=== PATIENT | female | born 1940 | race Caucasian/White ===

== ENCOUNTER 2016-03-27 06:45 | Day surgery (SDC) | payer OTHER ==
[2016-03-24 10:48] VITALS: BMI 26.9
[2016-03-27] MEDS ORDERED: PROPOFOL 20 ML ONE ×2 (07:57)
[2016-03-27 08:58] VITALS: TEMP 97.7
[2016-03-27 10:08] VITALS: BP 118/72; PULSE 66
--- NOTE | 2016-03-28 11:53 | PATH ---
Surgical Pathology Report Patient Name: ELAYNE CARDOZO [facility]. Rec. #: [id number] /Age/Gender: 1940 (Age: 75) / F Account: [id number] Location: [facility]-ENDOSCOPY Taken: 03/27/2016 Received: 03/27/2016 Reported: 03/28/2016 Physicians: Channing Mccoy M.D. Specimen(s) Received A: BX 2ND PORTION DUODENUM & BULB B: BX ANTRUM C: POLYPS RIGHT COLON D: POLYP DESCENDING COLON Clinical History Anemia, history of diverticulosis, polyps Hiatal hernia, atrophic gastritis, duodenal AVM, diverticulosis, right colon polyps, descending colon polyp Final Diagnosis A. DUODENUM, SECOND PORTION AND BULB, BIOPSY: DUODENAL MUCOSA WITH NO PATHOLOGIC CHANGES. NO HISTOLOGIC EVIDENCE OF GLUTEN SENSITIVE ENTEROPATHY (CELIAC SPRUE) IDENTIFIED. B. STOMACH, ANTRUM, BIOPSY: MODERATE CHRONIC ACTIVE GASTRITIS. IMMUNOSTAIN FOR H. PYLORI IS POSITIVE (FEW TO MODERATE NUMBERS OF ORGANISMS). C. COLON, RIGHT, BIOPSY: MULTIPLE PORTIONS OF TUBULAR ADENOMA D. COLON, DESCENDING, BIOPSY: TUBULAR ADENOMA. Electronically Signed Yves De La Rosa M.D. Gross Description A. Received in formalin, labeled "biopsy duodenal bulb and second portion" are 3 gonzales, irregular portions of soft tissue ranging from 0.3-0.5 cm. in greatest dimension. The specimens are submitted in toto in one cassette. B. Received in formalin, labeled "biopsy antrum" are 4 gonzales, irregular portions of soft tissue ranging from 0.2-1.2 cm. in greatest dimension. The specimens are submitted in toto in one cassette. C. Received in formalin, labeled "polyps right colon" are 3 gonzales, irregular portions of soft tissue ranging from 0.1-0.2 cm. in greatest dimension. The specimens are submitted in toto in one cassette. D. Received in formalin, labeled "polyp descending colon" is a gonzales, irregular portion of soft tissue measuring 0.3 cm. in greatest dimension. The specimen is submitted in toto in one cassette. 03/27/201603/27/2016
== END 2016-03-27 10:08 | disposition home or self-care (01) ==
LOC: JASU-ENDO 06:45
PROVIDERS: ATTEND Internal Medicine Gastroenterology
PROC: 0DBM8ZX Excision of Descending Colon, Via Natural or Artificial Opening Endoscopic, Diagnostic (ICD-10-PCS; 2016-03-27)
PROC: 0DBK8ZX Excision of Ascending Colon, Via Natural or Artificial Opening Endoscopic, Diagnostic (ICD-10-PCS; principal; 2016-03-27 08:00)
DX: Z86.010 Personal history of colon polyps (principal); D64.9 Anemia, unspecified; D12.2 Benign neoplasm of ascending colon; D12.4 Benign neoplasm of descending colon; K57.30 Diverticulosis of large intestine without perforation or abscess without bleeding; K64.8 Other hemorrhoids
CPT/HCPCS: 88305-TC; 88342-TC

== ENCOUNTER 2019-03-31 06:56 | Day surgery (SDC) | payer OTHER ==
[2019-03-28 12:05] VITALS: BMI 26.6
[2019-03-31 07:34] VITALS: TEMP 97.3
[2019-03-31 09:11] VITALS: BP 134/58; PULSE 63
--- NOTE | 2019-04-01 15:20 | PATH ---
Surgical Pathology Report Patient Name: ELAYNE CARDOZO [facility]. Rec. #: [id number] /Age/Gender: 1940 (Age: 78) / F Account: [id number] Location: [facility]OS[facility] Taken: 03/31/2019 Received: 03/31/2019 Reported: 04/01/2019 Physicians: Channing Mccoy M.D. Specimen(s) Received A: SECOND PORTION DUODENUM AND DUODENAL BULB B: GASTRIC ULCER AND GASTRIC ANTRAL ULCER C: SCHATZKI RING D: POLYP Clinical History Dysphagia, colon adenoma surveillance Postoperative diagnosis: Gastric ulcer, hiatal hernia, Schatzki's ring, cecal polyp, diverticulosis Final Diagnosis A. DUODENUM, SECOND PORTION AND BULB, BIOPSY: DUODENAL MUCOSA WITH NO PATHOLOGIC CHANGES. NO HISTOLOGIC EVIDENCE OF GLUTEN SENSITIVE ENTEROPATHY (CELIAC SPRUE) IDENTIFIED. B. STOMACH, ANTRUM, BIOPSY: MILD TO MODERATE CHRONIC GASTRITIS WITH REACTIVE GASTROPATHY AND FOCAL INTESTINAL METAPLASIA. NO DYSPLASIA IDENTIFIED. IMMUNOSTAIN FOR H. PYLORI IS NEGATIVE. C. ESOPHAGUS, SCHATZKI'S RING, BIOPSY: SQUAMOUS AND GASTRIC MUCOSA WITH ACUTE AND CHRONIC INFLAMMATION AND PAPILLOMATOSIS SUGGESTIVE OF REFLUX ESOPHAGITIS. NO INTESTINAL METAPLASIA IDENTIFIED (NO ARIZMENDI'S IDENTIFIED). D. COLON, CECUM, BIOPSY: TUBULAR ADENOMA. Electronically Signed Yves De La Rosa M.D. Gross Description A. Received in formalin, labeled "biopsy second portion of duodenum and duodenal bulb" are 3 gonzales, irregular portions of soft tissue ranging from 0.4-0.6 cm. in greatest dimension. The specimens are submitted in toto in one cassette. B. Received in formalin, labeled "biopsy gastric ulcer and antral ulcer" are 5 gonzales, irregular portions of soft tissue ranging from 0.2-0.4 cm. in greatest dimension. The specimens are submitted in toto in one cassette. C. Received in formalin, labeled "biopsy Schatzki's ring" are 5 gonzales, irregular portions of soft tissue ranging from 0.1-0.4 cm. in greatest dimension. The specimens are submitted in toto in one cassette. D. Received in formalin, labeled "biopsy cecal polyp" is a gonzales, irregular portion of soft tissue measuring 0.3 cm. in greatest dimension. The specimen is submitted in toto in one cassette. DL/03/31/2019 saudi/03/31/2019
== END 2019-03-31 09:34 | disposition home or self-care (01) ==
LOC: JASU-ENDO 06:56
PROVIDERS: ATTEND Internal Medicine Gastroenterology
PROC: 0DB48ZX Excision of Esophagogastric Junction, Via Natural or Artificial Opening Endoscopic, Diagnostic (ICD-10-PCS; 2019-03-31)
PROC: 0DB68ZX Excision of Stomach, Via Natural or Artificial Opening Endoscopic, Diagnostic (ICD-10-PCS; 2019-03-31)
PROC: 0DBH8ZX Excision of Cecum, Via Natural or Artificial Opening Endoscopic, Diagnostic (ICD-10-PCS; principal; 2019-03-31 08:00)
DX: Z12.11 Encounter for screening for malignant neoplasm of colon (principal); K57.30 Diverticulosis of large intestine without perforation or abscess without bleeding; K64.4 Residual hemorrhoidal skin tags; D12.0 Benign neoplasm of cecum; K25.9 Gastric ulcer, unspecified as acute or chronic, without hemorrhage or perforation; K44.9 Diaphragmatic hernia without obstruction or gangrene; K22.2 Esophageal obstruction; K29.50 Unspecified chronic gastritis without bleeding; I10 Essential (primary) hypertension; E11.9 Type 2 diabetes mellitus without complications; Z79.84 Long term (current) use of oral hypoglycemic drugs; Z86.010 Personal history of colon polyps
CPT/HCPCS: 88305-TC; 88342-TC

== ENCOUNTER 2019-12-03 05:05 | Day surgery (SDC) | payer OTHER ==
[2019-12-02 09:50] VITALS: BMI 23.6
[~2019-12-03 05:05] MED LIST: ACETAMINOPHEN 325 MG TABLET (FP) PO PRN; EPINEPHrine/PF 1 MG/1 ML (1:1,000) AMPULE SQ ONE
--- OUTSIDE RECORDS SUMMARY | 2019-12-03 05:11 | XMS ---
:1940 [facility] Care Team Providers Name Role Phone [facility], [facility] Unavailable Unavailable Re-disclosure Warning The records that you are about to access may contain information from federally- assisted alcohol or drug abuse programs. If such information is present, then the following federally mandated warning applies: This information has been disclosed to you from records protected by federal confidentiality rules (42 CFR part 2). The federal rules prohibit you from making any further disclosure of this information unless further disclosure is expressly permitted by the written consent of the person to whom it pertains or as otherwise permitted by 42 CFR part 2. A general authorization for the release of medical or other information is NOT sufficient for this purpose. The Federal rules restrict any use of the information to criminally investigate or prosecute any alcohol or drug abuse patient.The records that you are about to access may contain highly sensitive health information, the redisclosure of which is protected by Article 27-F of the [facility] Public Health law. If you continue you may haveaccess to information: Regarding HIV / AIDS; Provided by facilities licensed or operated by the [facility] Office of Mental Health; or Provided by the [facility] Office for People With Developmental Disabilities. If such information is present, then the following [facility] mandated warning applies: This information has been disclosed to you from confidential records which are protected by state law. State law prohibits you from making any further disclosure of this information without the specific written consent of the person to whom it pertains, or as otherwise permitted by law. Any unauthorized further disclosure in violation of state law may result in a fine or custodial sentence or both. A general authorization for the release of medical or other information is NOT sufficient authorization for further disclosure. Encounters Encounter Providers Location Date Indications Data Source(s ) Outpatient Attender: HVC9 05/06/2019 [facility] ([facility] [place] [facility] 01:01:29 PM Care [facility] carlos) EST Patient admitted. Insurance Providers Payer name Policy type Policy ID Covered Covered alliance party's Policy P kenyatta / Coverage alliance party ID relationship to Smiley Inf ormation type smiley MEDICAID [id number] SP [id number] MEDICARE [id number] SP [id number] Results ID Date Data Source [id number] 11/28/2019 04:50:00 PM EDT [facility] Name Value Range Interpretation Description Data Sup porting Code Source(s) Document(s ) SARS [facility] coronavirus 2 RNA This lab was ordered by [facility] and reported by [facility]. ID Date Data Source [id number] 08/09/2019 12:00:00 AM EDT [facility] Name Value Range Interpretation Code Description Data Bhargavi rce(s) Supporting Document(s ) nCoV [facility] RNA XXX POLLY+probe- Imp This lab was ordered by [facility] [employer] and reported by [employer] ID Date Data Source [id number] 08/02/2019 12:00:00 AM EDT [facility] Name Value Range Interpretation Code Description Data Bhargavi rce(s) Supporting Document(s ) nCoV [facility] RNA XXX POLLY+probe- Imp This lab was ordered by [facility] [employer] and reported by [employer] ID Date Data Source [id number] 07/20/2019 12:00:00 AM EDT [facility] Name Value Range Interpretation Code Description Data Bhargavi rce(s) Supporting Document(s ) nCoV [facility] RNA XXX POLLY+probe- Imp This lab was ordered by [facility] [employer] and reported by [employer] ID Date Data Source [id number] 07/13/2019 12:00:00 AM EDT [facility] Name Value Range Interpretation Code Description Data Bhargavi rce(s) Supporting Document(s ) nCoV [facility] RNA XXX POLLY+probe- Imp This lab was ordered by [facility] [employer] and reported by [employer] ID Date Data Source [id number] 06/23/2019 12:34:00 AM EDT [facility] Name Value Range Interpretation Code Description Data Bahrgavi rce(s) Supporting Document(s ) RESULT [facility] This lab was ordered by LYLA heller nd reported by [facility] Richard Mckeon. Procedure
[2019-12-03] MEDS ORDERED: TROPICAMIDE 1% OPHTH SOLN 15 ML BOTTLE ONE (06:30)
[2019-12-03] MEDS ORDERED: OFLOXACIN 0.3% OPHTHALMIC SOLUTION 5 ML BOTTLE ONE (06:30)
[2019-12-03] MEDS ORDERED: CYCLOPENTOLATE HCL 1% OPHTH SOLN 2 ML BOTTLE ONE (06:31)
[2019-12-03] MEDS ORDERED: KETOROLAC TROMETHAMINE 0.5% EYE DROP 1 DROP DROPS ONE (06:31)
[2019-12-03] MEDS: PHENYLEPHRINE 2.5% OPHTH SOLN 15 ML BOTTLE OP SCH ×3 (06:45→07:11)
[2019-12-03] MEDS: KETOROLAC TROMETHAMINE 0.5% EYE DROP 1 DROP DROPS OP SCH ×3 (06:45→07:11)
[2019-12-03] MEDS: TROPICAMIDE 1% OPHTH SOLN 15 ML BOTTLE OP SCH ×3 (06:45→07:11)
[2019-12-03] MEDS: OFLOXACIN 0.3% OPHTHALMIC SOLUTION 5 ML BOTTLE OP SCH ×3 (06:45→07:11)
[2019-12-03] MEDS: CYCLOPENTOLATE HCL 1% OPHTH SOLN 2 ML BOTTLE OP SCH ×3 (06:45→07:11)
[2019-12-03] MEDS ORDERED: TETRACAINE 0.5% OPHTH SOLN 2 ML BOTTLE ONE (07:16)
[2019-12-03] MEDS ORDERED: LIDOCAINE HCL/PF 1% SDV 5ML VIAL ONE (07:16)
[2019-12-03] MEDS ORDERED: EPINEPHrine/PF 1 MG/1 ML (1:1,000) AMPULE ONE (07:16)
[2019-12-03] MEDS ORDERED: TRYPAN BLUE 0.5 ML DISP.SYRIN ONE (07:17)
[2019-12-03] MEDS ORDERED: POVIDONE-IODINE 5% OPHTHALMIC PREP 30 ML SOLUTION ONE (07:17)
[2019-12-03] MEDS ORDERED: CHONDROITIN SU A/HYALUR SOD 1 KIT ONE (07:23)
[2019-12-03] MEDS ORDERED: MIDAZOLAM HCL 2 MG/2 ML SINGLE DOSE VIAL ONE (08:03)
[2019-12-03] MEDS ORDERED: TETRACAINE 0.5% OPHTH SOLN 2 ML BOTTLE OD ONE (08:13)
[2019-12-03] MEDS ORDERED: POVIDONE-IODINE 5% OPHTHALMIC PREP 30 ML SOLUTION OD ONE (08:15)
[2019-12-03] MEDS ORDERED: CHONDROITIN SU A/HYALUR SOD 1 KIT IO ONE (08:22)
[2019-12-03] MEDS ORDERED: BSS (NA/CA/MG/K) BALANCED SALT SOLUTION OPHTH SOLN 15 ML BOTTLE OD ONE (08:22)
[2019-12-03] MEDS ORDERED: LIDOCAINE HCL 1% PRESERVATIVE FREE - 30ML VIAL IO ONE (08:22)
[2019-12-03] MEDS ORDERED: EPINEPHrine/PF 1 MG/1 ML (1:1,000) AMPULE SQ ONE (08:32)
[2019-12-03 10:01] VITALS: BP 115/48; PULSE 65; TEMP 96.8
--- NOTE | 2019-12-03 10:57 | SPEC ---
DATE OF OPERATION: 12/03/2019 PREOPERATIVE DIAGNOSIS: Cataract, right eye. POSTOPERATIVE DIAGNOSIS: Cataract, right eye. OPERATION: Phacoemulsification of right cataract with posterior chamber intraocular lens implantation. Lens used [id number], 26.0 diopter power, serial number [id number]. SURGEON: David Morgan MD ANESTHESIA: Topical, MAC. COMPLICATIONS: None. PROCEDURE: The patient was brought to the operating room and correctly identified along with the operative site and the correct intraocular lens antoine. The patient was then prepped and draped in the usual sterile fashion including 5% Betadine solution in the conjunctival sac and an eyelid drape. An eyelid speculum was then placed in the eye. A paracentesis port was created and approximately 0.5 mL of preservative-free Lidocaine was then injected into the eye. Viscoelastic was then injected to inflate the anterior chamber. A temporal clear corneal wound was created. A continuous circular capsulorrhexis was performed. The nucleus was then hydrodissected with BSS and removed with phacoemulsification. The remaining cortical material was irrigated and aspirated. Viscoelastic was injected to inflate the capsular bag, and the intraocular lens was then implanted into the capsular bag. The remaining Viscoelastic was irrigated and aspirated from the eye. The IOL was noted to be well centered and completely covered by the anterior capsulorrhexis. Topical vancomycin was placed, and the eye patched and shielded. All wounds were tested and found to be watertight. No suture was placed. The eye was then shielded. The patient was then discharged from the operating room in stable condition. DAVID MORGAN M.D. [id number]
== END 2019-12-03 10:04 | disposition home or self-care (01) ==
LOC: JASU-SURG 05:05
PROVIDERS: ATTEND Ophthalmology
PROC: 08RJ3JZ Replacement of Right Lens with Synthetic Substitute, Percutaneous Approach (ICD-10-PCS; principal; 2019-12-03 08:00)
DX: H26.9 Unspecified cataract (principal); E11.9 Type 2 diabetes mellitus without complications; I10 Essential (primary) hypertension
CPT/HCPCS: 82962

== ENCOUNTER 2019-12-17 04:42 | Day surgery (SDC) | payer OTHER ==
[2019-12-16 12:49] VITALS: BMI 26.6
[~2019-12-17 04:42] MED LIST changes: +BSS (NA/CA/MG/K) BALANCED SALT SOLUTION OPHTH SOLN 15 ML BOTTLE OS ONE; +CHONDROITIN SU A/HYALUR SOD 1 KIT IO ONE; +LIDOCAINE HCL 1% PRESERVATIVE FREE - 30ML VIAL IO ONE; +POVIDONE-IODINE 5% OPHTHALMIC PREP 30 ML SOLUTION OS ONE; +TETRACAINE 0.5% OPHTH SOLN 2 ML BOTTLE OS ONE
--- OUTSIDE RECORDS SUMMARY | 2019-12-17 04:47 | XMS ---
:1940 [facility] Care Team Providers Name Role Phone [facility] Unavailable Unavailable Re-disclosure Warning The records that [...] is protected by Article 27-F of the [facility] Public Health law. If you continue you may haveaccess to information: Regarding HIV / AIDS; Provided by facilities licensed or operated by the [facility] Office of Mental Health; or Provided by the [facility] Office for People With Developmental Disabilities. If such information is present, then the following [facility] mandated warning applies: This information [...] law may result in a fine or mcfp sentence or both. A general authorization for the release of medical or other information is NOT sufficient authorization for further disclosure. Encounters Encounter Providers Location Date Indications Data Source(s ) Outpatient Attender: HVC9 05/06/2019 [facility] [place] [facility] Patient admitted. Insurance Providers Payer name Policy type Policy ID Covered Covered constitution party's Policy P kenyatta / Coverage constitution party ID relationship to Sm[employer] Inf ormation type smiley MEDICAID [id number] SP [id number] MEDICARE [id number] SP [id number] 7 Results ID Date Data Source [id number] 12/12/2019 04:30:00 PM EDT [facility] Name Value Range Interpretation Description Data Sup porting Code Source(s) Document(s ) SARS [facility] coronavirus 2 RNA This lab was ordered by [facility] and reported by [facility]. ID Date Data Source [id number] 11/28/2019 04:50:00 PM EDT [facility] Name Value Range Interpretation Description Data Sup porting Code Source(s) Document(s ) SARS [facility] coronavirus 2 RNA This lab was ordered by [facility] and reported by [facility]. ID Date Data Source [id number] 08/09/2019 12:00:00 AM EDT [facility] Name Value Range Interpretation Code Description Data Bhargavi rce(s) Supporting Document(s ) nCoV [facility] RNA XXX POLLY+probe- Imp This lab was ordered by [facility] [employer] and reported by [employer] ID Date Data Source [id number] 08/02/2019 12:00:00 AM EDT [facility] Name Value Range Interpretation Code Description Data Bhargavi rce(s) Supporting Document(s ) nCoV [facility] RNA XXX POLLY+probe- Imp This lab was ordered by [facility] [employer] and reported by [employer] ID Date Data Source [id number] 07/20/2019 12:00:00 AM EDT [facility] Name Value Range Interpretation Code Description Data Bhargavi rce(s) Supporting Document(s ) nCoV [facility] RNA XXX POLLY+probe- Imp This lab was ordered by [facility] [employer] and reported by [employer] ID Date Data Source [id number] 07/13/2019 12:00:00 AM EDT [facility] Name Value Range Interpretation Code Description Data Bhargavi rce(s) Supporting Document(s ) 2019-nCoV [facility] RNA XXX POLLY+probe- Imp [facility] and reported by [employer] ID Date Data Source [id number] 06/23/2019 12:34:00 AM EDT [facility] Name Value Range Interpretation Code Description Data Bhargavi rce(s) Supporting Document(s ) RESULT [facility] This lab was ordered by [facility] heller nd reported by [facility] [place]. Procedure
[2019-12-17] MEDS ORDERED: OFLOXACIN 0.3% OPHTHALMIC SOLUTION 5 ML BOTTLE ONE (06:34)
[2019-12-17] MEDS ORDERED: CYCLOPENTOLATE HCL 1% OPHTH SOLN 2 ML BOTTLE ONE (06:34)
[2019-12-17] MEDS ORDERED: KETOROLAC TROMETHAMINE 0.5% EYE DROP 1 DROP DROPS ONE (06:34)
[2019-12-17] MEDS ORDERED: TROPICAMIDE 1% OPHTH SOLN 15 ML BOTTLE ONE (06:34)
[2019-12-17] MEDS: CYCLOPENTOLATE HCL 1% OPHTH SOLN 2 ML BOTTLE OP SCH ×3 (06:40→06:50)
[2019-12-17] MEDS: OFLOXACIN 0.3% OPHTHALMIC SOLUTION 5 ML BOTTLE OP SCH ×3 (06:40→06:50)
[2019-12-17] MEDS: KETOROLAC TROMETHAMINE 0.5% EYE DROP 1 DROP DROPS OP SCH ×3 (06:40→06:50)
[2019-12-17] MEDS: TROPICAMIDE 1% OPHTH SOLN 15 ML BOTTLE OP SCH ×3 (06:40→06:50)
[2019-12-17] MEDS: PHENYLEPHRINE 2.5% OPHTH SOLN 15 ML BOTTLE OP SCH ×3 (06:40→06:50)
[2019-12-17] MEDS ORDERED: EPINEPHrine/PF 1 MG/1 ML (1:1,000) AMPULE ONE (07:16)
[2019-12-17] MEDS ORDERED: VANCOMYCIN 500 MG VIAL (RESTRICTED TO ID ONLY) ONE (07:17)
[2019-12-17] MEDS ORDERED: TETRACAINE 0.5% OPHTH SOLN 2 ML BOTTLE ONE (07:17)
[2019-12-17] MEDS ORDERED: LIDOCAINE HCL/PF 1% SDV 5ML VIAL ONE (07:17)
[2019-12-17] MEDS ORDERED: WATER FOR INJ,STERILE 10 ML ONE (07:17)
[2019-12-17] MEDS ORDERED: POVIDONE-IODINE 5% OPHTHALMIC PREP 30 ML SOLUTION ONE (07:18)
[2019-12-17] MEDS ORDERED: CHONDROITIN SU A/HYALUR SOD 1 KIT ONE (07:50)
[2019-12-17] MEDS ORDERED: MIDAZOLAM HCL 2 MG/2 ML SINGLE DOSE VIAL ONE (07:55)
[2019-12-17] MEDS ORDERED: TETRACAINE 0.5% OPHTH SOLN 2 ML BOTTLE OS ONE (08:08)
[2019-12-17] MEDS ORDERED: POVIDONE-IODINE 5% OPHTHALMIC PREP 30 ML SOLUTION OS ONE (08:12)
[2019-12-17] MEDS ORDERED: BSS (NA/CA/MG/K) BALANCED SALT SOLUTION OPHTH SOLN 15 ML BOTTLE OS ONE (08:16)
[2019-12-17] MEDS ORDERED: LIDOCAINE HCL 1% PRESERVATIVE FREE - 30ML VIAL IO ONE (08:16)
[2019-12-17] MEDS ORDERED: CHONDROITIN SU A/HYALUR SOD 1 KIT IO ONE (08:16)
[2019-12-17] MEDS ORDERED: EPINEPHrine/PF 1 MG/1 ML (1:1,000) AMPULE SQ ONE (08:26)
[2019-12-17 08:53] VITALS: PULSE 66
--- NOTE | 2019-12-17 11:07 | SPEC ---
DATE OF OPERATION: 12/17/2019 OPERATION: Phacoemulsification with posterior chamber intraocular lens implantation, left eye. Lens used [id number], 26.0 diopter power, serial number [id number]. PREOPERATIVE DIAGNOSIS: Cataract, left eye. POSTOPERATIVE DIAGNOSIS: Cataract, left eye. SURGEON: David Morgan M.D. ANESTHESIA: Topical MAC. COMPLICATIONS: None. PROCEDURE: The patient was brought to the operating room and correctly identified along with the operative site and the correct intraocular lens antoine. The patient was then prepped and draped in the usual sterile fashion including 5% Betadine solution in the conjunctival sac and an eyelid drape. An eyelid speculum was then placed in the eye. A paracentesis port was created and approximately 0.5 mL of preservative free Lidocaine was then injected into the eye. Viscoelastic was then injected to inflate the anterior chamber. A temporal clear corneal wound was created. A continuous circular capsulorrhexis was performed. The nucleus was then hydrodissected with BSS and removed with phacoemulsification. The remaining cortical material was irrigated and aspirated. Viscoelastic was injected to inflate the capsular bag and the intraocular lens was then implanted into the capsular bag. The remaining Viscoelastic was irrigated and aspirated from the eye. The IOL was noted to be well centered and completely covered by the anterior capsulorrhexis. Topical vancomycin was placed and the eye patched and shielded. All wounds were tested and found to be watertight. No suture was placed. The eye was then shielded. The patient was then discharged from the operating room in stable condition. DAVID MORGAN M.D. [id number]
[2019-12-17 11:12] VITALS: BP 119/40; TEMP 98.7
== END 2019-12-17 09:50 | disposition home or self-care (01) ==
LOC: JASU-SURG 04:42
PROVIDERS: ATTEND Ophthalmology
PROC: 08RK3JZ Replacement of Left Lens with Synthetic Substitute, Percutaneous Approach (ICD-10-PCS; principal; 2019-12-17 08:00)
DX: H26.9 Unspecified cataract (principal); I10 Essential (primary) hypertension; E11.9 Type 2 diabetes mellitus without complications; Z79.4 Long term (current) use of insulin
CPT/HCPCS: 82962

== ENCOUNTER 2021-10-26 08:23 | Emergency (ER) | payer OTHER ==
[2021-10-26 08:36] VITALS: BP 158/72; PULSE 109; RESP 17; TEMP 98.1; BMI 29.8
[2021-10-26] MEDS ORDERED: KETOROLAC TROMETHAMINE 30 MG/1 ML VIAL IM ONE (09:49)
== END 2021-10-26 11:18 | disposition home or self-care (01) ==
LOC: JERFT 08:23
PROC: 3E0233Z Introduction of Anti-inflammatory into Muscle, Percutaneous Approach (ICD-10-PCS; principal; 2021-10-26)
DX: M54.31 Sciatica, right side (principal)
CPT/HCPCS: 99283-25

== ENCOUNTER 2021-10-30 08:51 | Emergency (ER) | payer OTHER ==
[2021-10-30 09:00] VITALS: BP 152/59; PULSE 76; RESP 18; TEMP 98; BMI 29.8
[2021-10-30] MEDS ORDERED: morphine CARPU-JECT 2 MG/1 ML DISP.SYRIN IVPUSH ONE (09:36)
[2021-10-30 10:36] LABS: BASO % 0.3 % (0-2.0); EOS % 0.4 % (0-4.5); HEMATOCRIT 35.8 % (32.4-45.2); HEMOGLOBIN 12.1 GM/dL (10.7-15.3); LYMPH % 14.5 % (8-40); MCH 27.2 pg (25.7-33.7); MCHC 33.8 g/dl (32.0-36.0); MEAN CELL VOLUME 80.2 fl (80-96); MEAN PLT VOLUME 7.5 fl (7.5-11.1); MONO % 9.1 % (3.8-10.2); NEUT % 75.7 % (42.8-82.8); PLATELET COUNT 344 10^3/uL (134-434); RBC 4.46 M/mm3 (3.60-5.2); RDW 13.9 % (11.6-15.6); WHITE BLOOD COUNT 14.1 K/mm3 (4.0-10.0)
[2021-10-30 10:47] LABS: CHLORIDE 87 mmol/L (98-107)
[2021-10-30 10:49] LABS: ALBUMIN 3.5 g/dl (3.4-5.0); CALCIUM 8.2 mg/dL (8.5-10.1); CO2 26 mmol/L (21-32); GLUCOSE,RANDOM 133 mg/dL (74-106)
[2021-10-30 10:50] LABS: BLOOD UREA NITROGEN 26.1 mg/dL (7-18)
[2021-10-30 10:52] LABS: CREATININE 0.9 mg/dL (0.55-1.3)
[2021-10-30 10:54] LABS: TOT PROT 8.8 g/dl (6.4-8.2)
[2021-10-30 11:07] LABS: ANION GAP 1 MMOL/L (8-16); SODIUM 114 mmol/L (136-145)
[2021-10-30 11:10] LABS: EPI CELLS 13 /uL (0-25.1); HYALINE CASTS 0 /uL (0-3.1); URINE APPEARANCE CLEAR; URINE BACTERIA 10 /uL (0-1359); URINE BILIRUBIN NEGATIVE (NEGATIVE); URINE COLOR YELLOW; URINE GLUCOSE (UA) NEGATIVE (NEGATIVE); URINE KETONE TRACE (NEGATIVE); URINE LEUK ESTERASE 2+ (NEGATIVE); URINE NITRITE NEGATIVE (NEGATIVE); URINE PROTEIN 2+ (NEGATIVE); URINE RBC 10 /uL (0-23.9); URINE UROBILINOGEN 0.2 mg/dL (0.2-1.0); URINE WBC 40 /uL (0-25.8)
[2021-10-30 12:37] LABS: ALBUMIN 4.2 g/dl (3.4-5.0); BLOOD UREA NITROGEN 24.3 mg/dL (7-18)
[2021-10-30 12:40] LABS: CREATININE 0.9 mg/dL (0.55-1.3)
[2021-10-30 12:42] LABS: BILIRUBIN,TOTAL 0.8 mg/dL (0.2-1); TOT PROT 7.1 g/dl (6.4-8.2)
[2021-10-30] MEDS ORDERED: SODIUM CHLORIDE 0.9% 500 ML INFUS.BAG IV ONE (12:46)
[2021-10-30] MEDS ORDERED: KETOROLAC TROMETHAMINE 30 MG/1 ML VIAL IVPUSH ONE (12:46)
[2021-10-30] MEDS ORDERED: KETOROLAC TROMETHAMINE 15 MG/ML VIAL ONE (12:48)
== END 2021-10-30 14:30 | disposition home or self-care (01) ==
LOC: JERFT 08:51 → JER 08:51 → JERFT 14:30
PROC: 3E0333Z Introduction of Anti-inflammatory into Peripheral Vein, Percutaneous Approach (ICD-10-PCS; principal; 2021-10-30)
PROC: 3E033NZ Introduction of Analgesics, Hypnotics, Sedatives into Peripheral Vein, Percutaneous Approach (ICD-10-PCS; 2021-10-30)
DX: M54.41 Lumbago with sciatica, right side (principal); N30.00 Acute cystitis without hematuria
CPT/HCPCS: 36415; 73610-TC-RT-FY; 73630-TC-RT-FY; 74177-TC; 80053; 81003; 85025; 86900; 87086; 99285-25; Q9967